=== PATIENT | male | born 1935 | race Caucasian/White ===

== ENCOUNTER 2016-09-05 08:28 | Day surgery (SDC) | payer MEDICARE, OTHER ==
--- NOTE | 2016-08-30 12:45 | PREOP HISTORY & PHYSICAL ---
HISTORY: 80 year old male here for evaluation of declining vision over the past 1-2 weeks. The patient mentions difficulty with driving ( having to get closer to the road signs in order to read them), difficulty seeing the computer screen, and more glare symptoms at night. The right eye is worse than the left eye. He denies any difficulty with reading. 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), Rosacea with significant meibomitis OU, Chalazion/hordeolum of the left upper lid - post excision 05/23/11 (Prochoda) - repeat excision with pathological analysis 08/14/11 (Prochoda), Mixed astigmatism and presbyopia OCULAR MEDICATIONS: Artificial tears about TID to QID OU, AREDS 2 anti-oxidant vitamin therapy BID PAST MEDICAL HISTORY: Allergic rhinitis (J30.9) Anxiety (F41.9) Asthma in adult, moderate persistent, uncomplicated (J45.40) 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 Iodinated Contrast Burning sensation. Lipitor *ANTIHYPERLIPIDEMICS* Caused dehydration which lead to muscle pain/ cramps. Morphine Derivatives (hydromorphone, MS Contin, Esthela...) History of intolerance, but did receive some in the ER once and it was tolerated then, but second dose caused terrible nausea. Pneumovax 23 *VACCINES* Localized rash, localized erythema, localized edema ( shoulder to elbow). Theophylline *ANTIASTHMATIC AND BRONCHODILATOR AGENTS* Uncertain reaction. FAMILY HISTORY: Macular degeneration (H35.30) Mother. SOCIAL HISTORY: Alcohol use Occasional alcohol use. 1 per week, maybe. Tobacco use Never smoker. Vehicle Driving Yes. CURRENT MEDICATIONS: Advair Diskus (100-50MCG/DOSE Aero Pow Br Act, 1 (one) Inhalation twice a day, Taken starting 06/27/2016) Active. (Pulm) Aspirin (81MG Tablet, 1 (one) Oral every other day, Taken starting 10/31/2009) Active. Clotrimazole-Betamethasone (1-0.05% Cream, 1 (one) Cream External two times daily, Taken starting 06/27/2016) Active. (Use for 10-14 days or 3-4 days after rash is resolved.) FLUoxetine HCl (20MG Capsule, 1 (one) Oral daily with evening meal, Taken starting 07/06/2015) Active. FLUoxetine HCl (PMDD) (10MG Capsule, 1 (one) Capsule Oral daily, Taken starting 03/26/2016) Active. (take with 20mg capsule for a total of 30mg daily.) Omeprazole (20MG Capsule DR, 1 (one) Oral daily, Taken starting 06/27/2016) Active. Pravastatin Sodium (20MG Tablet, 1 Oral daily) Active. PredniSONE (10MG Tablet, see below Tablet Oral daily, Taken starting 07/26/2016 ) Active. (4 tablets daily for three days, then; 3 tablets daily for three days , then; 2 tablets daily for three days, then; 1 tablet daily for three days, then stop; ; Take all at once in the morning after breakfast.) Singulair (10MG Tablet, 1 Oral Each evening, Taken starting 06/27/2016) Active. Tramadol-Acetaminophen (37.5-325MG Tablet, 1-2 Oral every four to six hours, as needed, Taken starting 06/21/2016) Active. Tylenol Extra Strength (500MG Tablet, 1-2 Oral four times daily, as needed, Taken starting 08/21/2010) Active. Medications Reconciled PAST SURGICAL HISTORY: Cholecystectomy, [id number] Inguinal Hernia [id number] Dr. Mane, [facility], laparascopic. Cardiac Ablation December 2015 ([facility]) REVIEW OF SYSTEMS: General Not Present- Fever. Skin Not Present- New Lesions, Skin Cancer and Skin Problems. HEENT Present- Allergies, Blurred Vision, Decreased Hearing and Visual Disturbances (floaters). Not Present- Eye Pain, Sinusitis and Sleep Apnea. Respiratory Present- Asthma. Not Present- Chronic Cough, Emphysema and Shortness of Breath. Breast Not Present- Breast Cancer. Cardiovascular Present- Hyperlipidemia. Not Present- Angina, Heart Problems, Heart Stent and Hypertension. Gastrointestinal Present- GI Problems. Not Present- Heartburn and PUD. Male Genitourinary Not Present- BPH and Prostate cancer. Musculoskeletal Present- Joint Pain. Neurological Not Present- Decreased Memory, Headaches, Stroke and Vertigo. Psychiatric Not Present- Anxiety and Depression. Endocrine Not Present- Diabetes and Thyroid Problems. Hematology Not Present- Bleeding Problems and Blood Clots. PHYSICAL EXAMINATION: Vitals (Gabo Rdz M.D.; 08/20/2016 4:47 PM) 08/20/2016 4:46 PM Pulse: 48 (Regular) P.OX: 95% (Room air) BP: 132/74 (Sitting, Left Wrist, Small) Cardiovascular Auscultation Rhythm - Regular. Heart Sounds - No Summation Gallop(Faint gallop along the LSB ). Murmurs & Other Heart Sounds - Auscultation of the heart reveals - No Murmurs. OCULAR EXAMINATION: VISUAL ACUITY: with correction (Glasses) OD 20/60+2 (patient notes monocular diplopia OD) OS 20/60+2 NEAR J1+ at 14" WORKING Rx: OD -0.25 + 0.75 x 155 OS -0.25 + 1.75 x 003 ADD + 2.75 (Trifocal) MANIFEST REFRACTION: OD -0.50 + 1.25 x 160 (20/50+2 BAT 20/100) persistent monocular diplopia OD OS -0.75 + 2.00 x 010 (20/40+2 BAT 20/40) Better vision in trial frames OU ADD + 2.50 (J1+ at 14") Better near vision in trial frames than previous Rx CYCLOPLEGIC MANIFEST REFRACTION: OD -0.75 + 2.00 x 020 (20/40- (based on wet retinoscopy OU)) OS -1.25 + 2.00 x 180 (20/30-) CONFRONTATIONAL VISUAL CHEW: Normal to counting fingers in four quadrants OU PUPILS: Round and equal OU with no afferent pupillary defect seen EXTERNAL: Normal OU EXTRA-OCULAR MUSCLES: Versions full OU - orthotropic at both distance and near SLIT LAMP EXAM: LIDS/LASHES: Moderate meibomian inspissation OU CONJUNCTIVA: Quiet OU with moderate conjunctivochalasis OU CORNEA: Clear OU with poor tear film OU AC: 2+ shallow and quiet OU IRIS: Normal OU PUPILS: Round OU - dilated to only about 5 mm OU LENS: 2+ nuclear sclerosis with 1-2+ diffuse cortical cataract changes OU. 2+ central posterior sub-capsular cataract changes OD. Early posterior sub- capsular cataract changes OS ANTERIOR VITREOUS: No anterior vitreous cells or pigment seen OU TONOMETRY: TIME: 10:27 AM OD: 12 mm Hg OS: 14 mm Hg DILATING gtt: Phenylephrine 2.5% + Tropicamide 1% FUNDUS: C/D: 0.4 OU DISCS: Sharp with clear disc margins OU MACULA: Mild to moderate surface wrinkling retinopathy changes OD > OS with a macular pseudohole OD. No drusen seen OU VESSELS: Normal OU PERIPHERY: Posterior vitreous detachment OS with moderate vitreous syneresis OD. No breaks, tears, or retinal detachments seen OU KERATOMETRY: OD 42.95 / 44.50 x 045 OS 42.64 / 43.94 x 168 AXIAL LENGTH: OD 23.50 +/- 0.003 OS 23.53 +/- 0.014 IMPRESSION: Posterior subcapsular age-related cataract, both eyes (H25.043) Story: Visually significant cataracts OD > OS. Likely causing some of the patient's decline in vision, but he also has significant surface wrinkling retinopathy OD > OS. Discussed with patient today and I let him know that cataract surgery should improve the vision somewhat, but he may still need vitreo-retinal consultation with possible surgery if the visual acuity remains poor in the right eye (due to the macular pucker OD). He would like to proceed with cataract surgery OD at this time. We also discussed the refractive goals today and the patient would like to be corrected to a near- plano spherical equivalent postoperatively OD. We briefly touched on toric intra-ocular lenses, but the patient is alright with wearing glasses, and in light of the macular pucker OD, would likely be of limited utility. The patient would like to proceed with standard intra-ocular lens placement OD. Macular pucker, bilateral (H35.373) Story: Significant surface wrinkling retinopathy OD > OS (with macular pseudohole OD) - likely affecting the vision also (especially in the right eye) . Discussed with patient today. PLAN: Schedule the patient for a pre-operative evaluation for cataract extraction with intra-ocular lens OD. Lid soaks and scrubs BID OU (pre-operative blepharitis protocol and antibiotic ointment instructions handout given to patient today). Erythromycin ophthalmic ointment q hs OU as blepharitis prophylaxis (an e-Rx with refills x 1 was sent to [facility] in [place] ([phone] ) today). BIOMETRY, OPHTHALMIC, BY PARTIAL COHERENCE INTERFEROMETRY ([id number]) Restarted Erythromycin 5MG/GM, Apply 1/8 inch Ointment to the eyelashes of both eyes, at bedtime., 1 Tube, 08/20/2016, Ref. x1. Started Gatifloxacin 0.5%, 1 (one) drop four times daily to the operated eye, after surgery, 1 Bottle, 08/20/2016, Ref. x1. Started PrednisoLONE Acetate 1%, 1 drop(s) four times daily in the operated eye , after surgery, 10 Milliliter, 08/20/2016, Ref. x1. MTDD
[~2016-09-05 08:28] MED LIST: APRACLONIDINE 0.5% OPHTH 5 ML BTL OP ONE; BUPIVACAINE HCL/PF 0.75% 10 ML VIAL OP ONE; CIPROFLOXACIN 0.3% OPHTH 50 DROP/5 ML BTL OP SCH; CYCLOPENTOLATE HCL 1% OPHTH 2 ML BTL OP SCH; FLURBIPROFEN 0.03% OPHTH 2.5 ML BTL OP SCH; PHENYLEPHRINE 2.5% OPHTH 10 DROP/2 ML BTL OP SCH
[2016-09-05] MEDS ORDERED: PHENYLEPHRINE 2.5% OPHTH 10 DROP/2 ML BTL ONE (08:43)
[2016-09-05] MEDS ORDERED: CYCLOPENTOLATE HCL 1% OPHTH 2 ML BTL ONE (08:43)
[2016-09-05] MEDS ORDERED: FLURBIPROFEN 0.03% OPHTH 2.5 ML BTL ONE (08:43)
[2016-09-05] MEDS ORDERED: APRACLONIDINE 0.5% OPHTH 5 ML BTL ONE (08:43)
[2016-09-05] MEDS ORDERED: BUPIVACAINE HCL/PF 0.75% 10 ML VIAL ONE (08:43)
[2016-09-05] MEDS ORDERED: CIPROFLOXACIN 0.3% OPHTH 50 DROP/5 ML BTL ONE (08:43)
[2016-09-05 08:49] VITALS: TEMP 97.9
[2016-09-05] MEDS ORDERED: MIDAZOLAM HCL 2 MG/2 ML VIAL ONE (11:27)
[2016-09-05] MEDS ORDERED: LIDOCAINE HCL/PF 1% 30 ML VIAL ONE (11:43)
[2016-09-05] MEDS ORDERED: BACITRACIN OPHTH OINTMENT 3.5 GM TUBE ONE (11:43)
[2016-09-05] MEDS ORDERED: KETOROLAC 0.45% OPHTH 1 DROP/EACH DROPERETTE ONE (11:43)
[2016-09-05] MEDS ORDERED: CHONDROITIN/HYALURONIDATE OPHT 0.5 ML KIT ONE (11:43)
[2016-09-05 12:06] VITALS: BP 132/73; PULSE 49; RESP 16; O2SAT 92
--- NOTE | 2016-09-06 07:45 | OPERATIVE REPORT ---
DATE OF SURGERY: 09/05/2016 SURGEON: Gabo Rdz MD ANESTHESIA: Topical with monitored anesthesia care. PREOPERATIVE DIAGNOSIS: Cataract, right eye. POSTOPERATIVE DIAGNOSIS: Cataract, right eye. OPERATION PERFORMED: Cataract extraction by phacoemulsification with posterior chamber intraocular lens, right eye. COMPLICATIONS: None. PROCEDURE: The patient was brought to the operating room where he was placed in the supine position. After the instillation of additional tetracaine drops in the right eye, the eye was prepped and draped in the usual sterile ophthalmic manner. This was not well-placed as the patient was exceedingly blepharospastic and the drape could only be placed over a tightly-shut eye. Therefore it did not fully cover the lashes once opened with drape scissors. At this time the patient was given IV Versed due to anxiety and severe blepharospasm. A lid speculum was placed in the right eye, after which an inferior paracentesis was fashioned with 1-mm steel keratome, and 0.2 mL of 1% nonpreserved lidocaine was injected intracamerally followed by Viscoat. A temporal clear corneal incision of 3-mm width was fashioned with a steel keratome. A continuous curvilinear capsulorrhexis was fashioned with a bent- needle cystitome and Utrata forceps under Viscoat. This was kept small as the patient's pupil did not dilate well. Hydrodissection was carried out with balanced salt solution on an intraocular cannula. The nucleus was noted to rotate freely. Phacoemulsification proceeded in a two-handed fashion utilizing high phacoemulsification times and hua, as the nucleus was noted to be 3+ dense. It was also difficult to remove as the patient had a shallow anterior chamber throughout the procedure, and persisted in squeezing tightly against the eyelid speculum for the duration of the procedure. Residual cortical material was then removed with the automated irrigation-aspiration handpiece. The anterior chamber and capsular bag were then reinflated with Provisc, after which an AcrySof model SA60AT foldable acrylic intraocular lens of 21.0 diopters power was placed into the capsular bag. The haptics were rotated with a Y hook and the intraocular lens was noted to center well. Residual viscoelastic was then removed with the automated irrigation-aspiration handpiece, after which the wound edges were hydrated with balanced salt solution. The intraocular pressure at the conclusion of the procedure was physiologic, and there was no evidence of wound leakage upon testing with a Weck Charley sponge. Acular drops and bacitracin ointment were placed in the right eye, and the patient was brought to the recovery area, having tolerated the procedure well. He was given full postoperative instructions. SANDRA
== END 2016-09-05 12:21 | disposition home or self-care (01) ==
LOC: SDS 08:28
PROVIDERS: ATTEND Ophthalmology
DX: H25.041 Posterior subcapsular polar age-related cataract, right eye (principal); H35.373 Puckering of macula, bilateral; H53.123 Transient visual loss, bilateral; M54.81 Occipital neuralgia; M10.9 Gout, unspecified; F41.9 Anxiety disorder, unspecified; J30.9 Allergic rhinitis, unspecified; E78.00 Pure hypercholesterolemia, unspecified; G60.9 Hereditary and idiopathic neuropathy, unspecified; Z85.820 Personal history of malignant melanoma of skin; Z79.899 Other long term (current) drug therapy
CPT/HCPCS: 66984; J0171; J2250; V2632